=== PATIENT | male | born 1990 | race Caucasian/White ===

== ENCOUNTER 2023-05-28 11:47 | Outpatient (REF) | payer MEDICAID, SELFPAY ==
[2023-05-28 14:38] LABS: Anion Gap 12 (12-20); Blood Urea Nitrogen 13 mg/dL (9-16); Calcium 9.3 mg/dL (8.4-10.2); Carbon Dioxide 25 mmol/L (22-29); Chloride 104 mmol/L (96-108); Estimated Glomerular Filt Rate > 60; Glucose Random 82 mg/dL (60-115); Potassium 3.6 mmol/L (3.3-5.1); Sodium 137 mmol/L (135-145)
[2023-05-28 14:58] LABS: TSH reflex Free T4 0.59 uIU/mL (0.32-4.0)
== END 2023-05-28 11:48 | disposition home or self-care (01) ==
LOC: HO.CHCLDS 11:47
PROVIDERS: Visit Provider Internal Medicine
DX: I10 Essential (primary) hypertension (principal); E03.9 Hypothyroidism, unspecified
CPT/HCPCS: 36415; 80048; 84443

== ENCOUNTER 2024-01-08 10:50 | Outpatient (REF) | payer MEDICAID, SELFPAY ==
[2024-01-08 14:01] LABS: MANUAL DIFF FLAG NO
[2024-01-08 14:06] LABS: Basophils Absolute Auto 0.1 X10*3/uL (0.0-0.2); Basophils Percent Auto 0.9 % (0-2); Eosinophils Absolute Auto 0.2 X10*3/uL (0.0-0.4); Eosinophils Percent Auto 2.8 % (0-4); Hematocrit 44.2 % (42.0-52.0); Hemoglobin 15.9 g/dl (14.0-18.0); Imm Gran Abs Auto 0.03 X10*3/uL (0.00-0.03); Imm Gran Pct Auto 0.5 % (0.0-0.4); Lymphocytes Absolute Auto 1.8 X10*3/uL (1.2-4.9); Lymphocytes Percent Auto 28.1 % (20-40); Mean Corpuscular Hemoglobin 30.8 pg (27.0-33.0); Mean Corpuscular Volume 85.5 fL (80.0-98.0); Mean Platelet Volume 9.9 fL (9.4-12.4); Monocytes Absolute Auto 0.4 X10*3/uL (0.1-1.2); Monocytes Percent Auto 6.8 % (2-11); Neutrophils Absolute Auto 3.9 x10*3/uL (2.0-8.3); Neutrophils Percent Auto 60.9 % (45-73); Platelet Count 218 X10*3/uL (160-400); Red Blood Count 5.17 X10*6/uL (4.60-5.80); Red Cell Distribution Width 12.2 % (11.0-16.0); White Blood Count 6.4 X10*3/uL (4.8-10.8)
[2024-01-08 14:33] LABS: Alanine Aminotransferase 45 U/L (0-40); Albumin Level 4.7 g/dL (3.5-5.0); Alkaline Phosphatase 88 U/L (39-117); Anion Gap 14 (12-20); Aspartate Amino Transferase 23 U/L (5-37); Bilirubin Total 0.3 mg/dL (0.0-1.0); Blood Urea Nitrogen 14 mg/dL (9-16); Calcium 9.6 mg/dL (8.4-10.2); Carbon Dioxide 19 mmol/L (22-29); Chloride 109 mmol/L (96-108); Cholesterol 230 mg/dL (<200); Estimated Glomerular Filt Rate > 60; Glucose Random 104 mg/dL (60-115); HDL Cholesterol 58 mg/dL (>40); LDL Cholesterol Calculated 144 mg/dL (<100); Potassium 4.2 mmol/L (3.3-5.1); Sodium 138 mmol/L (135-145); Total Protein 7.3 g/dL (6.5-8.0); Triglycerides 142 mg/dL (<150)
[2024-01-08 14:52] LABS: TSH reflex Free T4 0.43 uIU/mL (0.32-4.0)
== END 2024-01-08 10:51 | disposition home or self-care (01) ==
LOC: HO.CHCLDS 10:50
PROVIDERS: Visit Provider Internal Medicine
DX: I10 Essential (primary) hypertension (principal); E66.01 Morbid (severe) obesity due to excess calories; Z68.41 Body mass index [BMI] 40.0-44.9, adult
CPT/HCPCS: 36415; 80053; 80061; 84443; 85025

== ENCOUNTER 2024-01-25 10:06 | Outpatient (REF) | payer MEDICAID, SELFPAY ==
--- NOTE | ~2024-01-25 | US_ITS ---
EXAMINATION: US ABDOMEN COMPLETE CLINICAL INFORMATION: Transaminitis. COMPARISON: Ultrasound abdomen July 30, 2013. CT abdomen and pelvis December 08, 2010. TECHNIQUE: Real-time imaging of the abdominal viscera. FINDINGS: PANCREAS: Normal. ABDOMINAL AORTA: The proximal, mid, and distal segments are normal in caliber. INFERIOR VENA CAVA: Visualized portions are normal. LIVER: The liver is normal in size. The liver contour is normal. Diffusely increased liver echogenicity. No focal hepatic lesion. There is no intrahepatic biliary duct dilatation seen. GALLBLADDER: Surgically absent. COMMON BILE DUCT: Normal in caliber measuring 0.3 cm in diameter. RIGHT KIDNEY: Normal. No hydronephrosis. No renal calculi or focal parenchymal lesions. The kidney measures 10.8 cm in maximum dimension. LEFT KIDNEY: Normal. No hydronephrosis. No renal calculi or focal parenchymal lesions. The kidney measures 10.7 cm in maximum dimension. SPLEEN: The spleen measures 13.2 cm in maximum dimension. FREE FLUID: None. US/US abdomen complete IMPRESSION: 1. Diffusely increased liver echogenicity. This is a nonspecific finding but most suggestive of hepatic steatosis. Correlation with liver enzymes recommended. 2. Mild splenomegaly. Electronically signed by: Kobi Tim MD 02/16/2024 09:40 AM EDT
== END 2024-01-25 10:07 | disposition home or self-care (01) ==
LOC: HO.US 10:06
PROVIDERS: PCP Internal Medicine; Visit Provider Internal Medicine
DX: R74.01 Elevation of levels of liver transaminase levels (principal); E66.01 Morbid (severe) obesity due to excess calories; Z68.41 Body mass index [BMI] 40.0-44.9, adult
CPT/HCPCS: 76700

== ENCOUNTER 2024-06-02 16:04 | Outpatient (REF) | payer MEDICAID, SELFPAY ==
[2024-06-02 17:24] LABS: MANUAL DIFF FLAG NO
[2024-06-02 17:27] LABS: Basophils Percent Auto 0.4 % (0-2); Eosinophils Absolute Auto 0.2 X10*3/uL (0.0-0.4); Eosinophils Percent Auto 2.2 % (0-4); Hematocrit 43.7 % (42.0-52.0); Imm Gran Abs Auto 0.05 X10*3/uL (0.00-0.03); Imm Gran Pct Auto 0.5 % (0.0-0.4); Lymphocytes Absolute Auto 2.5 X10*3/uL (1.2-4.9); Lymphocytes Percent Auto 23.5 % (20-40); Mean Corpuscular HGB Conc 36.6 g/dl (31.0-36.0); Mean Corpuscular Hemoglobin 30.4 pg (27.0-33.0); Mean Corpuscular Volume 83.1 fL (80.0-98.0); Mean Platelet Volume 9.6 fL (9.4-12.4); Monocytes Absolute Auto 0.7 X10*3/uL (0.1-1.2); Monocytes Percent Auto 6.7 % (2-11); Neutrophils Absolute Auto 7.1 x10*3/uL (2.0-8.3); Neutrophils Percent Auto 66.7 % (45-73); Platelet Count 289 X10*3/uL (160-400); Red Blood Count 5.26 X10*6/uL (4.60-5.80); Red Cell Distribution Width 12.3 % (11.0-16.0); White Blood Count 10.6 X10*3/uL (4.8-10.8)
== END 2024-06-02 16:05 | disposition home or self-care (01) ==
LOC: HO.CHCLDS 16:04
PROVIDERS: Visit Provider Internal Medicine
DX: K62.5 Hemorrhage of anus and rectum (principal); K62.6 Ulcer of anus and rectum
CPT/HCPCS: 36415; 85025; 87255

== ENCOUNTER 2024-09-19 13:05 | Outpatient (AMB) | payer MEDICAID, SELFPAY ==
--- NOTE | 2024-09-19 13:06 | MHC.OFFVIS ---
Vital Signs 09/19/24 13:16 Height 5 ft 2 in Weight 227 lb 15.327 oz BMI 41.7 BP 106/58 L Blood Pressure Location Rt brachial Position Sitting Pulse 78 Pulse Source Pulse Oximeter Pulse Oximetry (%) 96 Oxygen Delivery Method Room Air Intake Visit Reasons: colonoscopy issue Intake Note: NEW PATIENT for initial eval of rectal bleeding and constipation. Prior hx of colo/egd? N Chief Complaint; C/O infrequent episodes of constipation and rectal bleeding within the last few months. 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 Door To Door Selling Agent Required: No Accompanied by: Other Relationship Allergies pollen extracts [POLLEN] Allergy (Unknown, Unverified 03/04/20 18:02) SNEEZING HPI HPI colonoscopy issue: Details: 34 years old male with past medical history of constipation, seizure disorder, intellectual disability, hypertension, hypothyroidism, hyperlipidemia, obesity is here today for initial consultation. Patient was sent to us by his PCP. Patient was seen in May and evaluated in the office by his PCP. Patient has frequently been dealing with constipation. Reports also fecal urgencies and if he does not get the bathroom on time he soils himself. Patient in the staff who is with him during morning shift reports that patient had 1 episode of blood in the stool that was recorded by staff, no other documentation.. PCP's office note reviewed from last visit. Upon reviewing the note: exam: erythema of the anus associated that with irregular shallow ulcer near rectal opening, ccording to PCP's notes. CBC , normal H&H Patient reports 1 episode only when straining and no or more episodes since. [facility] Medical History (Updated 09/19/24 @ 13:23 by SE Kuhn) Depression Insomnia Hypothyroidism Hyperammonemia Hallucinations HTN (hypertension) Seizures Social History (Updated 09/19/24 @ 13:23 by SE Kuhn) Alcohol intake: unknown Patient Tobacco Use Status: Tobacco use Unknown Review of Systems Const Denies weight gain and Denies weight loss ENT Reports no additional complaints, Denies dysphagia and Denies odynophagia Card Reports no additional complaints Resp Reports no additional complaints GI Denies abdominal pain, Denies belching, Denies melena, Denies bloating, Denies change in bowel habits, Reports constipation, Denies dysphagia, Denies excessive flatus, Denies dyspepsia, Denies heartburn, Denies diarrhea, Denies loose stools, Denies nausea, Denies odynophagia and Denies vomiting Reports no additional complaints Musc Reports no additional complaints Neuro Reports no additional complaints Psych Reports no additional complaints Endo Reports no additional complaints Physical Exam Vital Signs: Last Vital Signs Pulse 78 09/19/24 13:16 BP 106/58 L 09/19/24 13:16 Pulse Ox 96 09/19/24 13:16 Oxygen Delivery Method Room Air 09/19/24 13:16 BMI result Body Mass Index 41.7 Const General: healthy appearing, no acute distress and well developed Nutritional Appearance: well nourished Orientation/consciousness: oriented to person and oriented to place Resp Effort & Inspection: normal respiratory effort, able to speak in complete sentences, no tracheal deviation and symmetric chest movement Auscultation: clear to auscultation bilaterally Cardio Rate: regular rate GI Inspection: Yes normal to inspection and No distended Palpation (GI): Soft to palpation, not firm, nontender and No hepatosplenomegaly present Auscultation: normal bowel sounds General: Yes no CVA tenderness Back/Spine/Pelvis Back: no CVA tenderness Skin General skin exam: elasticity normal, turgor normal and dry skin Neuro General: oriented to person and oriented to place Psych Appearance: grossly normal Assessment & Plan Assessment & Plan (1) Constipation: Code(s): K59.00 - Constipation, unspecified Qualifiers: Constipation type: slow transit constipation Qualified Code(s): K59.01 - Slow transit constipation Plan Script for Colace sent. Increase fluid intake and activity to promote better bowel motility. Patient in staff encouraged to have patient sits on the toilet longer time and avoid straining. Script for Proctosol send. Patient will return in 6 months if he continued to have symptoms of blood in his stools, melena or hematochezia the staff is to call our office to make sooner appointment. Both patient and staff verbalize understanding of instructions and agreeable to plan of care. There was given the opportunity to ask questions and all questions answered. Thank you for allowing me to participate in his care Medications: New docusate sodium 100 mg PO BEDTIME 90 caps 3RF K59.00 - Constipation, unspecified hydrocortisone 2.5% (Proctosol HC) 1 appl [place] BID-QID PRN 30 grams 2RF hemorrhoids K64.9 - Unspecified hemorrhoids Coding Level of Care Code New Pt Level 3 (23456) Diagnoses Slow transit constipation K59.01 Constipation type: slow transit constipation Time Spent (min) 40 Comment 30 minutes spent with patient and additional 10 minutes spent reviewing his records
[2024-09-19 13:16] VITALS: BP 106/58; PULSE 78; O2SAT 96; BMI 41.7
--- OUTSIDE RECORDS SUMMARY | 2024-09-19 14:57 | XMS_ITS | Encounter Summary ---
Author Organization [employer] Address [address] [place] [address] Care Team Providers Care Car Repair Supervisor Name Role Phone Amy White MD Primary Care Provider [phone] Encounter Details Date Type Department Care Team ([facility] st Contact Info) Description 12/10/2023 Orders Only [facility] MED & PEDS [address] [place], [place] [phone] Amy White MD [address] [place] [address] Social History Tobacco Use Types Packs/Day Years Used Date Smoking Tobacco: Never Passive Smoke Exposure: Never Smokeless Tobacco: Never Alcohol Use Standard Drinks/Week Comments Never 0 (1 standard drink = 0.6 oz pur e alcohol) Depression Answer Date Recorded Patient Health Questionnaire-9 Score 0 05/30/2022 Housing Stability Answer Date Recorded What is your housing situation today? I have mikey silveira 04/06/[address] you li ve. Do you have problems with any of the following? Not on file 04/06/2023 Food Insecurity Answer Date Recorded Within the past 12 months, y ou worried that your food would run out before you got money to buy more: Never True 04/06/2023 Within the past 12 months,th e food you bought just didn't last and you didn't have enough money to get more: Never True Transportation Answer Date Recorded In the past 12 months, has l ack of transportation kept you from medical appts, meetings, work or from getting things needed for daily living? No 04/06/2023 Utilities Answer Date Recorded In the past 12 months, has t he electric, gas, oil or water company threatened to shut off services in your home? No 04/06/2023 Depression Answer Date Recorded Patient Health Questionnaire-2 Score 0 05/30/2022 Sex and Gender Information Value Date Recorded Sex Assigned at Male 04/17/2022 10:21 AM EDT Legal Sex Male 10:21 AM EDT Gender Identity Male 04/17/2022 10:21 AM EDT Sexual Orientation Straight 04/17/2022 10 :21 AM EDT documented as of this encounter Plan of Treatment Not on file documented as of this encounter Visit Diagnoses Not on filedocumented in this encounter Additional Health Concerns Assessment Noted Time PHQ-9 Depression Total Score: 0 05/30/20 22 2:31 PM EST documented as of this encounter Care Teams Car Repair Supervisor Relationship Specialty Start Date End Date Amy White MD [address] [place] [id number] PCP - General Internal Medicine 06/18/18 documented as of this encounter
--- OUTSIDE RECORDS SUMMARY | 2024-09-19 14:57 | XMS_ITS | Encounter Summary ---
Author Organization [email or web address] Address [address] [place] [address] Care Team Providers Care Brake Repair Supervisor Name Role Phone Amy White MD Primary Care Provider [phone]- [phone] Encounter Details Date Type Department Care Team (Late st Contact Info) Description 01/01/[address] [facility] MED & PEDS [address] [place], [place] [phone] Amy White MD [address] [place], [place] [phone] Primary hypertension (Primary Dx); Class 3 severe obesity due to excess calories without serious comorbidity with body mass index (BMI) of 40.0 to 44.9 in adult (CMS/HCC) Social History Tobacco Use Types Packs/Day Years Used Date Smoking Tobacco: Never Passive Smoke Exposure: Never Smokeless Tobacco: Never Alcohol Use Standard Drinks/Week Comments Never 0 (1 standard drink = 0.6 oz pur e alcohol) Depression Answer Date Recorded Patient Health Questionnaire-9 Score 0 05/30/2022 Housing Stability Answer Date Recorded What is your housing situation today? I have mikey silveira 01/01/[address] you li ve. Do you have problems with any of the following? None of the above 01/01/2024 Food Insecurity Answer Date Recorded Within the past 12 months, y ou worried that your food would run out before you got money to buy more: Never True 01/01/2024 Within the past 12 months,th e food you bought just didn't last and you didn't have enough money to get more: Never True Transportation Answer Date Recorded In the past 12 months, has l ack of transportation kept you from medical appts, meetings, work or from getting things needed for daily living? No 01/01/2024 Utilities Answer Date Recorded In the past 12 months, has t he electric, gas, oil or water company threatened to shut off services in your home? No 01/01/2024 Depression Answer Date Recorded Patient Health Questionnaire-2 Score 0 05/30/2022 Sex and Gender Information Value Date Recorded Sex Assigned at Male 04/17/2022 10:21 AM EDT Legal Sex Male 10:21 AM EDT Gender Identity Male 04/17/2022 10:21 AM EDT Sexual Orientation Straight 04/17/2022 10 :21 AM EDT documented as of this encounter Plan of Treatment Not on file documented as of this encounter Procedures Procedure Name Priority Date/Time Associated Diagnosis Comments CBC WITH AUTO DIFFERENTIAL Routine 01/08/2024 10:56 AM EDT Primary hypertension Class 3 severe obesity due to excess calories without serious comorbidity with body mass index (BMI) of 40.0 to 44.9 in adult ([facility]) TSH W/REFLEX TO FT4 Routine 01/08/2024 1 0:06 AM EDT Primary hypertension Class 3 severe obesity due to excess calories without serious comorbidity with body mass index (BMI) of 40.0 to 44.9 in adult ([facility]) LIPID PANEL, STANDARD Routine 01/08/2024 10:06 AM EDT Primary hypertension Class 3 severe obesity due to excess calories without serious comorbidity with body mass index (BMI) of 40.0 to 44.9 in adult ([facility]) COMPREHENSIVE METABOLIC PANEL Routine 01/08/2024 10:06 AM EDT Primary hypertension Class 3 severe obesity due to excess calories without serious comorbidity with body mass index (BMI) of 40.0 to 44.9 in adult ([facility]) documented in this encounter Results * (ABNORMAL) CBC auto differential (01/08/2024 10:56 AM EDT) White Blood Count 6.4 4.8 - 10.8 X10*3/uL [facility] Red Blood Count 5.17 4.60 - 5.80 X10*6/uL [facility] Hemoglobin 15.9 14.0 - 18.0 g/dl [facility] Hematocrit 44.2 42.0 - 52.0 % [facility] Mean Corpuscular Volume 85.5 80.0 - 98.0 fL [facility] Mean Corpuscular Hemoglobin 30.8 27.0 - 33.0 pg [facility] Mean Corpuscular HGB Conc 36.0 31.0 - 36.0 g/dl [facility] Red Cell Distribution Width 12.2 11.0 - 16.0 % [facility] Platelet Count 218 160 - 400 X10*3/uL [facility] Mean Platelet Volume 9.9 9.4 - 12.4 fL [facility] Neutrophils Percent Auto 60.9 45 - 73 % [facility] Imm Gran Pct Auto 0.5(H) 0.0 - 0.4 % [facility] Lymphocytes Percent Auto 28.1 20 - 40 % [facility] Monocytes Percent Auto 6.8 2 - 11 % [facility] Eosinophils Percent Auto 2.8 0 - 4 % [facility] Basophils Percent Auto 0.9 0 - 2 % [facility] NRBC Pct Auto 0.0 0.0 - 0.2 /100WBC [facility] Neutrophils Absolute Auto 3.9 2.0 - 8.3 x10*3/uL [facility] Imm Gran Abs Auto 0.03 0.00 - 0.03 X10*3/uL [facility] Lymphocytes Absolute Auto 1.8 1.2 - 4.9 X10*3/uL [facility] Monocytes Absolute Auto 0.4 0.1 - 1.2 X10*3/uL [facility] Eosinophils Absolute Auto 0.2 0.0 - 0.4 X10*3/uL [facility] Basophils Absolute Auto 0.1 0.0 - 0.2 X10*3/uL [facility] NRBC Abs Auto 0.000 0.0 - 0.012 X10*3/uL [facility] Blood Venous blood specimen / Unknown 01/08/2024 10:56 AM EDT 01/08/2024 1:58 PM EDT us Amy White MD LAB BLOOD ORDERABLES Final Result Performing Organization Address [facility] Co de Phone Number [facility] [address] [place] [phone] * (ABNORMAL) Lipid Panel, Standard (01/08/2024 10:06 AM EDT) Triglycerides 142 <150 mg/dL [facility] Comment:Desirable Triglyceri de: less than 150 mg/dLBorderline High Triglyceride 150-199 mg/dLHigh Triglyceride: 200-499 mg/dLVery High Triglyceride: greater than or equal to 5OO mg/dL Cholesterol 230(H) <200 mg/dL [facility] Comment:Desirable Cholestero l: less than 200 mg/dLBorderline High Cholesterol: 200-239 mg/dLHigh Cholesterol: greater than 239 mg/dL LDL Cholesterol Calculated 144(H) <100 mg/dL [facility] Comment:Desirable LDL: less than 100 mg/dLNear Optimal/Above Optimal LDL: 110- 129 mg/dLBorderline High LDL: 130-159 mg/dLHigh LDL: 160-189 mg/dLVery High LDL: greater than or equal to 190 mg/dL HDL Cholesterol 58 >40 mg/dL [facility] Comment:Desirable HDL: great er than 40 mg/dL Note: This HDL assay may give artificially low results in patients with liver disease. Blood Venous blood specimen / Unknown 01/08/2024 10:06 AM EDT 01/08/2024 1:58 PM EDT us Amy White MD LAB BLOOD ORDERABLES Final Result Performing Organization Address [facility]/ZIP Co de Phone Number [facility] [address] [place] [phone] * TSH W/Reflex to FT4 (01/08/2024 10:06 AM EDT) TSH reflex Free T4 0.43 0.32 - 4.0 uIU/mL [facility] Blood Venous blood specimen / Unknown 01/08/2024 10:06 AM EDT 01/08/2024 1:58 PM EDT us Amy White MD LAB BLOOD ORDERABLES Final Result [facility] [address] [place] [phone] * (ABNORMAL) Comprehensive Metabolic Panel (01/08/2024 10:06 AM EDT) Sodium 138 135 - 145 mmol/L [facility] Potassium 4.2 3.3 - 5.1 mmol/L [facility] Chloride 109(H) 96 - 108 mmol/L [facility] Carbon Dioxide 19(L) 22 - 29 mmol/L [facility] Anion Gap 14 12 - 20 [facility] Urea Nitrogen (BUN) 14 9 - 16 mg/dL [facility] Creatinine, Serum 0.94 0.5 - 1.4 mg/dL [facility] Estimated Glomerular Filt Rate >60 [facility] Comment:NOTE: For -Am erican individuals, multiply the result by 1.210.Chronic Kidney Disease: Estimated GFR < 60 mL/min/[id number] Kidney Disease: Estimated GFR < 15 mL/min/1.73m2 Glucose 104 60 - 115 mg/dL [facility] Calcium 9.6 8.4 - 10.2 mg/dL [facility] Bilirubin, Total 0.3 0.0 - 1.0 mg/dL [facility] Aspartate Amino Transferase 23 5 - 37 U/L [facility] Alanine Aminotransferase 45(H) 0 - 40 U/L [facility] Total Protein 7.3 6.5 - 8.0 g/dL [facility] Albumin Level 4.7 3.5 - 5.0 g/dL [facility] Alkaline Phosphatase 88 39 - 117 U/L [facility] Blood Venous blood specimen / Unknown 01/08/2024 10:06 AM EDT 01/08/2024 1:58 PM EDT Amy Whiet MD LAB BLOOD ORDERABLES Final Result [facility] [address] [place] [phone] documented in this encounter Visit Diagnoses Diagnosis Primary hypertension- Primary Unspecified essential hypertension Class 3 severe obesity due to excess calories without serious comorbidity with body mass index (BMI) of 40.0 to 44.9 in adult (CMS/HCC) documented in this encounter Additional Health Concerns Assessment Noted Time PHQ-9 Depression Total Score: 0 05/30/20 22 2:31 PM EST documented as of this encounter Care Teams Brake Repair Supervisor Relationship Specialty Start Date End Date Amy White MD [address] [place] [phone] PCP - General Internal Medicine 06/18/18 documented as of this encounter
--- OUTSIDE RECORDS SUMMARY | 2024-09-19 14:57 | XMS_ITS | Encounter Summary ---
Author Organization [employer] Address [address] [place] [address] Care Team Providers Care Fur Stylist Name Role Phone Amy White MD Primary Care Provider [phone]- [phone] Encounter Details Date Type Department Care Team ([facility] st Contact Info) Description 07/26/2023 Orders Only [facility] MED & PEDS [address] [place], [place] [phone] Amy White MD [address] [place] [address] Moderate persistent asthma without complication Social History Tobacco Use Types Packs/Day Years [...] documented as of this encounter Visit Diagnoses Diagnosis Moderate persistent asthma without complication documented in this encounter Additional Health Concerns Assessment Noted Time PHQ-9 Depression Total Score: 0 05/30/20 22 2:31 PM EST documented as of this encounter Care Teams Fur Stylist Relationship Specialty Start Date End Date Amy White MD [address] [place] [address] PCP - General Internal Medicine 06/18/18 documented as of this encounter
--- OUTSIDE RECORDS SUMMARY | 2024-09-19 14:57 | XMS_ITS | Clinical Summary ---
Author Organization [facility] Address [address] [place] [id number] Care Team Providers Care Licensed Insurance Agent Name Role Phone Unavailable Primary Care Provider Unavailabl e Social History Tobacco Use Types Packs/Day Years Used Date Smoking Tobacco: Never Assessed Sex and Gender Information Value Date Recorded Sex Assigned at Not on file Legal Sex Male 3:01 PM EST Gender Identity Not on file Sexual Orientation Not on file Plan of Treatment Health Maintenance Due Date Last Done Comments Hepatitis B Vaccine (1 of 3 - 19+ 3-dose series) 2007 Pneumococcal Vaccine: Pediat rics (0 to 5 Years) and At-Risk Patients (6 to 64 Years) (2 of 2 - PCV) 01/13/2015 01/13/2014 Influenza Vaccine (Season Ended) 2025 03/20/20 19, 05/20/2012 [id number]
--- OUTSIDE RECORDS SUMMARY | 2024-09-19 14:57 | XMS_ITS | Clinical Summary ---
Author Organization [employer] Address [address] 7[address] [place] [address] Care Team Providers Care District Ranger Name Role Phone Amy White MD Primary Care Provider [phone] Allergies Active Allergy Reactions Criticality Noted Date Comments Gramineae Pollens 10/10/2022 Medications clonazePAM (KlonoPIN) [address] 1 tablet by translingual route as needed after generalized seizure. Take 1 tablet again after second seizure in 24 hours. May repeat x1 if third seizure in 24 hours. 04/17/20 18 Active clonazePAM (KlonoPIN) 1 MG tablet take 1 tablet by oral route at 8 PM if pt had a seizure during the day 01/19/20 21 Active ondansetron (Zofran) 4 MG tablet Take 1 tablet by mouth in the morning and 1 tablet at noon and 1 tablet in the evening. 08/19/19 22 Active OXcarbazepine (Trileptal) 600 MG tablet Take 2 tablet by mouth twice a day as directed Active risperiDONE (RisperDAL) 1 MG tablet Take 1 tablet by mouth once a day as needed per *after seizure* protocol and 1 tablet the following morning. 02/02/20 22 Active risperiDONE (RisperDAL) 0.5 MG tablet Take 0.5 mg by mouth in the morning and at bedtime. 05/05/20 19 Active venlafaxine XR (Effexor XR) 150 MG 24 hr capsule Take 1 capsule by mouth in the morning. 01/07/20 19 Active zonisamide (Zonegran) 100 MG capsule Take 3 capsules by mouth twice daily *pack 3 capsules in a bubble* 01/07/20 19 Active cloBAZam (Onfi) 20 MG tablet Take 1 tablet by mouth 2 times daily. Active bacitracin 500 UNIT/GM ointmentIndication s:Infected wound Apply topically 2 times daily. 14 g 01/13/20 23 Active hydrogen peroxide 3 % external solutionIndication s:Laceration of multiple sites of left upper extremity, subsequent encounter Apply topically if needed for wound care. To apply to the affected area 2 times a day. 118 mL 01/25/20 23 Active lactulose 20 gram/30 mL oral solutionIndication s:Moderate persistent asthma without complication Take 60 mL (40 g) by mouth in the morning. to achieve four to seven BM in once week. Contact HCP if individual continues to have more than 2 loose stools in one day. Contact PCP if not having a BM in 2 days. 3600 mL 3 07/26/19 24 Active hydrOXYzine HCl (Atarax) 25 MG tablet Take 1 tablet (25 mg) by mouth every 12 (twelve) hours if needed for itching. 60 tablet 3 12/07/19 24 Active sulfamethoxazole-t rimethoprim (Bactrim DS) 800-160 MG tablet Take 1 tab orally every 12 hrs for 1 days 20 tablet 12/07/19 24 Active Multiple Vitamin (Multi-Vitamin) tabletIndications: Painless rectal bleeding,Acquired hypothyroidism Take 1 tablet by mouth Once per day. 30 tablet 11 01/24/20 24 Active levothyroxine (Synthroid, Levoxyl) 50 MCG tabletIndications: Acquired hypothyroidism Take 1 tablet (50 mcg) by mouth in the morning. On an empty stomach 30 tablet 11 03/20/20 24 Active lisinopril-hydroCH LOROthiazide 10-12.5 MG tabletIndications: Hypertension, unspecified type Take 1 tablet by mouth Once per day. 30 tablet 11 03/24/20 24 025 Active acetaminophen (Tylenol 8 Hour) 650 MG ER tablet TAKE 1 TABLET BY MOUTH 3 TIMES A DAY IF NEEDED FOR TEMP >100, HEADACHES, TOOTHACHES, MUSCLE/JOINT/GEORGE K PAIN, MINOR INJURIES AND DISCOMFORT FROM SUTURES. CONTACT HCP IF SYMPTOMS HAVE NOT RESOLVED IN 3 DAYS 60 tablet 11 04/30/20 24 Active bacitracin 500 UNIT/GM ointmentIndication s:Infected wound APPLY A THIN FILM TOPICALLY 3 TIMES A DAY IF NEEDED FOR MINOR CUTS AND ABRASIONS. NO MORE THAN 3 DOSES IN 24 HOURS. CONTACT HCP IF NOT RESOLVED IN 7 DAYS 14 g 3 04/30/20 24 Active melatonin 5 MG tabletIndications: Primary insomnia TAKE 1 TABLET BY MOUTH AT BEDTIME 30 tablet 5 05/05/20 24 Active liver oil-zinc oxide (Desitin) 40 % ointment Apply pea size amount to anus at bedtime for one week. Then apply as needed for itching or discomfort. 113 g 3 06/04/20 24 Active Fluticasone-Salmet krista 100-50 MCG/ACT aerosol powderIndications: Moderate persistent asthma without complication Place 1 puff into mouth between cheek and gum 2 times daily. INHALE 1 PUFF BY MOUTH TWICE A DAY. RINSE MOUTH AFTER USE. 60 each 11 07/10/19 25 Active Active Problems Problem Noted Date Diagnosed Date Infected wound 01/12/2023 Assessment & Plan (01/12/2023 3:21 PM EDT): Maintain area dry and clean Apply bacitracin on affected area twice a day cephalexine Q 6hrs Do not miss appointment for possible suture removal on 01/15/23 Routine adult health maintenance 10/10/2022 Assessment & Plan (10/10/2022 4:27 PM EDT): Elder hasn't had an annual exam in over a year. I ordered blood work and [facility] 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 No medication alterations are necessary today. 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 This was edited in [employer] [facility]. Encounters Date Type Department Care Team Description 09/01/2024 5:40 PM EDT Office Visit [facility] [address] [place], [place] [phone] Herve Rutledge MD Sore throat (Primary Dx) 09/01/2024 Telephone [facility] [address] [place], [place] [phone] Amy White MD Nurse Triage 08/29/2024 Population [facility] Risk Score [facility] (C3) Department [address] [id number] Provider, Population Health Generic 07/10/2024 Refill [facility] [address] [place] [address] Amy White MD Moderate persistent asthma without complication 07/08/2024 Refill [facility] [address] [place] [address] Amy White MD 06/27/2024 Telephone [facility] [address] [place], [place] [phone] Pamela Nam MD from Last 3 Months Immunizations Name Administration Dates Next Due HepB-CpG 08/31/2023,08/03/2023 Influenza Injectable Quadriv alant Preservative Free IIV4 MDCK 08/03/2023 Influenza injectable quadrivalent preservative f ree 03/20/2019 Influenza, IIV3, injectable 03/05/2017, 4 Influenza, Injectable, MDCK, preservative free 1 07/09/2023 Influenza, Split (incl. purified surface antigen ) 05/20/2012 Pfizer Covid-19 Vaccine 12+ 08/16/2020, Pneumococcal Polysaccharide PPSV23 01/13/2014 Tdap 03/16/2017,02/22/2016 Social History Tobacco Use Types Packs/Day Years Used Date Smoking Tobacco: Never Passive Smoke Exposure: Never Smokeless Tobacco: Never Tobacco Cessation:Counseling Given: Not Answered Alcohol Use Standard Drinks/Week Comments Never 0 (1 standard drink = 0.6 oz pur e alcohol) Depression Answer Date Recorded Patient Health Questionnaire-9 Score 5 01/09/2024 Patient Health Questionnaire-9 Score 5 01/09/2024 Last PHQ-9: Questionnaire Data Not on file 0 01/09/2024 Housing Stability Answer Date Recorded What is [...] Answer Date Recorded Patient Health Questionnaire-2 Score 3 01/09/2024 Internet Access Answer Date Recorded Internet Access Q1 Yes 02/16/2024 Internet Access Q2 Not on file 02/16/2024 Sex and Gender Information Value Date Recorded Sex Assigned at Male 04/17/2022 10:21 AM EDT Legal Sex Male 10:21 AM EDT Gender Identity Male 04/17/2022 10:21 AM EDT Sexual Orientation Straight 04/17/2022 10 :21 AM EDT Last Filed Vital Signs Vital Sign Reading Time Taken Comments Blood Pressure 111/76 09/01/2024 5:54 PM EDT Pulse 88 09/01/2024 5:54 PM EDT Temperature 36.7 ??C (98.1 ??F) 09/01/2024 5:54 PM ED T Respiratory Rate 18 09/01/2024 5:54 PM EDT Oxygen Saturation 95% 09/01/2024 5:54 PM EDT Inhaled Oxygen Concentration - - Weight 104 kg (229 lb) 09/01/2024 5:54 PM EDT Height 157.5 cm (5' 2 ) 06/02/2024 3:07 PM EST Body Mass Index 41.88 06/02/2024 3:07 PM EST Plan of Treatment Health Maintenance Due Date Last Done Comments Alcohol/Substance Use Screening 2000 Family Planning (PISQ) 2003 Pneumococcal Vaccine: Pediatrics (0 to 5 Years) and At-Risk Patients (6 to 49) Years) (2 of 2 - PCV) 01/13/2015 01/13/2014 COVID-19 Vaccine (3 - season) 2024 08/16/2020, 07/26/2020 SDOH Screening 12/31/2024 01/01/2024 Depression Screening 01/08/2025 01/09/2024, 01/09/20 24 Tobacco Screening 06/02/2025 06/02/2024 DTaP/Tdap/Td Vaccines (3 - Td or Tdap) 03/16/2027 03/16/2017, 02/22/2016 Lipid Panel 01/07/2029 01/08/2024, 06/18, 06/15/2021 Zoster Vaccines (1 of 2) 2038 RSV Patients and Patients Aged 60 years or older (1 - 1-dose 75+ series) 2063 HIV Screening Completed 06/15/2021 Hepatitis C Screening Completed 06/28/2021, 021 Hepatitis B Vaccines Completed 08/31/2023, 08/03/19 24 Influenza Vaccine Completed 05/09/2024, , 03/20/2019, Additional history exists HIB Vaccines Aged Out No longer eligi ble based on patient's age to complete this topic HPV Vaccines Aged Out No longer eligi ble based on patient's age to complete this topic Hepatitis A Vaccines Aged Out No long er eligible based on patient's age to complete this topic IPV Vaccines Aged Out No longer eligi ble based on patient's age to complete this topic Meningococcal Vaccine Aged Out No anibal kong eligible based on patient's age to complete this topic RSV under 20 months Aged Out No longe r eligible based on patient's age to complete this topic Rotavirus Vaccines Aged Out No longer eligible based on patient's age to complete this topic Procedures Procedure Name Priority Date/Time Associated Diagnosis Comments POCT INFLUENZA A (ID NOW RAPID MOLECULAR) Routine 09/01/2024 6:05 PM EDT Sore throat POCT INFLUENZA B (ID NOW RAPID MOLECULAR) Routine 09/01/2024 6:04 PM EDT Sore throat POCT RAPID COVID ANTIGEN Routine 09/01/2024 6:00 PM EDT Sore throat POC YOUNG ID NOW STREP A Routine 09/01/2024 5:59 PM EDT Sore throat LIPID PANEL, STANDARD Routine 01/08/2024 10:06 AM EDT Primary hypertension Class 3 severe obesity due to excess calories without serious comorbidity with body mass index (BMI) of 40.0 to 44.9 in adult (CMS/HCC) ZZZ HISTORICAL HEPATITIS C AB W/REFL TO HCV RNA, QN, PCR Routine 06/28/2021 11:48 AM EST HIV 1/2 ANTIGEN/ANTIBODY, FOURTH GENERATION W/RFL Routine 06/15/2021 12:08 PM EST from Last 3 Months or Most Recently Relevant to Health Maintenance Results * POCT Rapid Influenza A YOUNG ID NOW (09/01/2024 6:05 PM EDT) Influenza A Negative Negative, Indeterminate [facility] QC Media Lot # [id number] [facility] Lot# Expiration Date [facility] Swab 09/01/2024 6:05 PM EDT Herve Paiz MD POINT OF CARE TEST ENTER/EDIT ORDERABLES Final Result [facility] [address] [place] [phone] * POCT Rapid Influenza B YOUNG ID NOW (09/01/2024 6:04 PM EDT) [facility] Influenza B Negative Negative, Indeterminate [facility] QC Media Lot # [id number] [facility] Lot# Expiration Date [facility] Swab 09/01/2024 6:04 PM EDT Herve Paiz MD POINT OF CARE TEST ENTER/EDIT ORDERABLES Final Result Performing Organization Address [facility]/ZIP Co de Phone Number [facility] [address] [place] [phone] * POCT Rapid Covid-19 BinaxNOW (09/01/2024 6:00 PM EDT) [facility] Rapid COVID Ag Negative QC Media Lot # [id number] Lot# Expiration Date Swab 09/01/2024 6:00 PM EDT Herve Paiz MD POINT OF CARE TEST ENTER/EDIT ORDERABLES Final Result * POCT Rapid Strep A YOUNG ID NOW (09/01/2024 5:59 PM EDT) [facility] Rapid Strep A Screen Negative Negative, None Detected QC Media Lot # [id number] Lot# Expiration Date Swab 09/01/2024 5:59 PM EDT Herve Paiz MD POINT OF CARE TEST ENTER/EDIT ORDERABLES Final Result * (ABNORMAL) Lipid Panel, Standard (01/08/2024 10:06 AM EDT) [facility] Triglycerides 142 <150 mg/dL [facility] Comment:Desirable Triglyceri de: less than 150 mg/dLBorderline High Triglyceride 150-199 mg/dLHigh Triglyceride: 200-499 mg/dLVery High Triglyceride: greater than or equal to 5OO mg/dL Cholesterol 230(H) <200 mg/dL [facility] Comment:Desirable Cholestero l: less than 200 mg/dLBorderline High Cholesterol: 200-239 mg/dLHigh Cholesterol: greater than 239 mg/dL LDL Cholesterol Calculated 144(H) <100 mg/dL [facility] Comment:Desirable LDL: less than 100 mg/dLNear Optimal/Above Optimal LDL: 110- 129 mg/dLBorderline High LDL: 130-159 mg/dLHigh LDL: 160-189 mg/dLVery High LDL: greater than or equal to 190 mg/dL HDL Cholesterol 58 >40 mg/dL [facility] Comment:Desirable HDL: great er than 40 mg/dL Note: This HDL assay may give artificially low results in patients with liver disease. Blood Venous blood specimen / Unknown 01/08/2024 10:06 AM EDT 01/08/2024 1:58 PM EDT us Amy White MD LAB BLOOD ORDERABLES Final Result [facility] [address] [place] [phone] * HEPATITIS C AB W/REFL TO HCV RNA, QN, PCR (06/28/2021 11:48 AM EST) HEPATITIS C ANTIBODY NON-REACT CLARK NON-REACT CLARK [facility] INDEX 0.01 <1.00 [facility] Comment: ?? HCV antibody was non-reactive. There is no laboratory ?? evidence of HCV infection. ?? In most cases, no further action is required. However, if recent HCV exposure is suspected, a test for HCV RNA (test code 22243) is suggested. ?? For additional information please refer to http://education.[employer]/faq/BXM24w5 (This link is being provided for informational/ educational purposes only.) ?? 06/28/2021 11:4 8 AM EST us Amy White MD HISTORICAL/NON ORDERABLE LA BS Final Result Performing Organization Address [facility] Phone Number [facility] [address] * HIV 1/2 ANTIGEN/ANTIBODY,FOURTH GENERATION W/RFL (06/15/2021 12:08 PM EST) HIV-1/2 ANTIGEN AND ANTIBODIES, 4TH GENERATION W/ REFLEX NON-REACT CLARK NON-REACT CLARK [facility] Comment: HIV-1 antigen and HIV-1/HIV-2 antibodies were not detected. There is no laboratory evidence of HIV infection. ?? PLEASE NOTE: This information has been disclosed to you from records whose confidentiality may be protected by state law. ??If your state requires such protection, then the state law prohibits you from making any further disclosure of the information without the specific written consent of the person to whom it pertains, or as otherwise permitted by law. A general authorization for the release of medical or other information is NOT sufficient for this purpose. ? For additional information please refer to http://education.[employer]/faq/PGJ101 (This link is being provided for informational/ educational purposes only.) ? The performance of this assay has not been clinically validated in patients less than 2 years old. ?? 06/15/2021 12:0 8 PM EST us Amy White MD LAB BLOOD ORDERABLES Final Result Performing Organization Address [facility] Phone Number [facility] [address] from Last 3 Months or Most Recently Relevant to Health Maintenance Insurance Care Teams District Ranger Relationship Specialty Start Date End Date Amy White MD [address] [place] [phone] PCP - General Internal Medicine 06/18/18
--- OUTSIDE RECORDS SUMMARY | 2024-09-19 14:57 | XMS_ITS | Encounter Summary ---
Author Organization [employer] Address [address] [facility] [address] [place] [address] Care Team Providers Care Business Development Engineer Name Role Phone Amy White MD Primary Care Provider [phone]- [phone] Encounter Details Date Type Department Care Team ([facility] st Contact Info) Description 01/02/[address] [facility]S [address] [place] [address] Amy White MD [address] [place] [address] Social History Tobacco Use Types Packs/Day Years Used Date Smoking Tobacco: Never Smokeless Tobacco: Never Alcohol Use Standard Drinks/Week Comments Never 0 (1 standard drink = 0.6 oz pur e alcohol) Depression Answer Date Recorded Patient Health Questionnaire-9 Score 0 05/30/2022 Depression Answer Date Recorded Patient Health Questionnaire-2 [...] documented as of this encounter Care Teams Business Development Engineer Relationship Specialty Start Date End Date Amy White MD [address] [place] [address] PCP - General Internal Medicine 06/18/18 documented as of this encounter
--- OUTSIDE RECORDS SUMMARY | 2024-09-19 14:57 | XMS_ITS | Encounter Summary ---
Author Organization [employer] [facility] Address [address] [facility] 7 [place] [address] Care Team Providers Care Senior Data Warehouse Architect Name Role Phone Amy White MD Primary Care Provider [phone] Encounter Details Date Type Department Care Team (Late st Contact Info) Description 05/24/2022 Abstract [facility] [address] [place] [address] Provider, MD Berk[place] Social History Tobacco Use Types Packs/Day Years [...] Diagnoses Not on filedocumented in this encounter Care Teams Senior Data Warehouse Architect Relationship Specialty Start Date End Date Amy White MD [address] [place] [address] PCP - General Internal Medicine 06/18/18 documented as of this encounter
--- OUTSIDE RECORDS SUMMARY | 2024-09-19 14:57 | XMS_ITS | Encounter Summary ---
Author Organization [employer] Address [address] [facility] 7t [place] [address] Care Team Providers Care Sales And Business Development Manager Name Role Phone Amy White MD Primary Care Provider [phone]- [phone] Reason for Visit * Reason Onset Date Comments Nurse Triage 12/03/2023 Encounter Details Date Type Department Care Team ([facility] st Contact Info) Description 12/03/2023 Telephone [facility] [address] [place] [address] Amy White MD [address] [place] [address] Nurse Triage Social History Tobacco Use Types Packs/Day Years [...] t he electric, gas, oil or water [employer] threatened to shut off services in your home? 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 Call to Pt , Pt answered, assistant coach with Pt and speaker phone initiated. Pt reports severe itchiness which is causing open and scabbed areas mainly bilateral lower extremities. Neg for rash, bumps, skin dryness. Pt reports main areas to bee left foot, top of which has scabbed area from scratching, Right foot also and side of left lower leg. Pt is advised to keep fingernails short and Pt declined this advise. Advised to use cold, clean wash cloth for relief. Pt does have order for bacitracin ointment and assistant coach reports scabbed areas had been cleaned with soap and water , rinsed , dried and ointment applied. Pt is advised to come to [facility] , hours given open today 830am-800pm and tomorrow. Facility closed on Sunday. Open 830am-400pm. Pt and assistant coach agree with disposition and home care advised. Pt insurance isverified as active. Protocol Used: Itching - Localized (Adult) Protocol-Based Disposition: See in Office or Video Visit within 3 Days Video visit not offered Positive Triage Question: * Cause unknown and present > 7 days * All higher-acuity triage questions were negative Care Advice Discussed: * Reassurance and Education - Itching * Don't Scratch * Wash off Irritants * Ice for Itching That Gets Worse * Hydrocortisone Cream for Itching * Antihistamine for Itching * Antihistamine Medicines - Extra Notes and Warnings * Reasons To Call Back - Looks infected (e.g., spreading redness, red streak, pus) - Itching becomes severe - Itching lasts over 7 days - You become worse * Telephone Encounter - Adry Chavez - 12/03/2023 11:44 AM EDT Tc from [facility] returning call. Please contact [phone] * Telephone Encounter - Tricia Garrido - 12/03/2023 11:01 AM EDT Symptom: Itching - No Rash Outcome: Schedule an urgent appointment (within 4 hours) or talk to a nurse or provider soon Reason: Itching has caused bleeding The caller accepted this outcome Please contact [facility]/pt at [phone] documented in this encounter Plan of Treatment Not on file documented as of this encounter Visit Diagnoses Not on filedocumented in this encounter Additional Health Concerns Assessment Noted Time PHQ-9 Depression Total Score: 0 05/30/20 22 2:31 PM EST documented as of this encounter Care Teams Sales And Business Development Manager Relationship Specialty Start Date End Date Amy White MD [address] [place] [phone] PCP - General Internal Medicine 06/18/18 documented as of this encounter
--- OUTSIDE RECORDS SUMMARY | 2024-09-19 14:57 | XMS_ITS | Encounter Summary ---
Author Organization [employer] Address [address] [facility] [address] [address] [place] [address] Care Team Providers Care Echocardiography Technologist Name Role Phone Amy White MD Primary Care Provider [phone]- [phone] Reason for Visit * Reason Onset Date Comments FYI 06/05/2024 Encounter Details Date Type Department Care Team ([facility] st Contact Info) Description 06/05/2024 Telephone [facility] [address] [place] [address] Amy White MD [address] [place] [address] FYI Social History Tobacco Use Types Packs/Day Years [...] encounter Miscellaneous Notes * Telephone Encounter - Sergio Guerrero RN - 06/05/2024 10:58 AM EST Please see FYI below. * Telephone Encounter - Jeanie Ledbetter - 06/05/2024 10:36 AM EST Tc from pharmacy notifying pt will be replaced with same medication liver oil- zinc oxide (Desitin) 40 % ointment just different method which it will be paste instead ointment as medication is not available as prescribed. documented in this encounter Plan of Treatment Not on file documented as of this encounter Visit Diagnoses Not on filedocumented in this encounter Additional Health Concerns Assessment Noted Time PHQ-9 Depression Total Score: 5 01/09/20 24 11:39 AM EDT documented as of this encounter Care Teams Echocardiography Technologist Relationship Specialty Start Date End Date Amy White MD [address] [place] [phone] PCP - General Internal Medicine 06/18/18 documented as of this encounter
--- OUTSIDE RECORDS SUMMARY | 2024-09-19 14:57 | XMS_ITS | Encounter Summary ---
Author Organization [employer] Address [address] [facility] 7t [place] [address] Care Team Providers Care Car Dumper Operator Name Role Phone Amy White MD Primary Care Provider Encounter Details Date Type Department Care Team ([facility] st Contact Info) Description 01/22/2023 Orders Only [facility] [address] [place], [place] [phone] Amy White MD [address] [place], [place] [phone] Infected wound (Primary Dx); Laceration of left upper arm, initial encounter; Irritation of left eye; Painless rectal bleeding; Acquired hypothyroidism Social History Tobacco Use Types Packs/Day Years [...] as of this encounter Visit Diagnoses Diagnosis Infected wound- Primary Posttraumatic wound infection not elsewhere classified Laceration of left upper arm, initial encounter Irritation of left eye Painless rectal bleeding Acquired hypothyroidism Unspecified hypothyroidism documented in this encounter Additional Health Concerns Assessment Noted Time PHQ-9 Depression Total Score: 0 05/30/20 22 2:31 PM EST documented as of this encounter Care Teams Car Dumper Operator Relationship Specialty Start Date End Date Amy White MD [address] [place] [id number] PCP - General Internal Medicine 06/18/18 documented as of this encounter
--- OUTSIDE RECORDS SUMMARY | 2024-09-19 14:57 | XMS_ITS | Encounter Summary ---
Author Organization [employer] Address [address] [facility] 7 [place] [address] Care Team Providers Care Acute Dialysis Nurse Name Role Phone Amy White MD Primary Care Provider Encounter Details Date Type Department Care Team (Late st Contact Info) Description 03/06/2023 Orders Only [facility]EDS [address] [place], [place] [phone] Amy White MD [address] [place] [address] Social History Tobacco Use Types Packs/Day Years [...] documented as of this encounter Care Teams Acute Dialysis Nurse Relationship Specialty Start Date End Date Amy White MD [address] [place] [address] PCP - General Internal Medicine 06/18/18 documented as of this encounter
== END 2024-09-19 13:29 | disposition home or self-care (01) ==
LOC: HO.HGI 13:05
PROVIDERS: PCP Internal Medicine; Visit Provider Nurse Practitioner Family
DX: K59.01 Slow transit constipation (principal)
CPT/HCPCS: 99203

== ENCOUNTER → 2024-09-19 13:05 | Outpatient (BNVA) | payer MEDICAID, SELFPAY | PROVIDERS: PCP Internal Medicine; Visit Provider Nurse Practitioner Family | DX: K59.01 Slow transit constipation (principal); K64.9 Unspecified hemorrhoids | CPT/HCPCS: 99212 ==

== ENCOUNTER 2024-12-09 12:01 | Outpatient (REF) | payer MEDICAID, SELFPAY ==
[2024-12-09 12:30] LABS: MANUAL DIFF FLAG NO
[2024-12-09 13:35] LABS: Basophils Percent Auto 0.5 % (0-2); Eosinophils Absolute Auto 0.1 X10*3/uL (0.0-0.4); Eosinophils Percent Auto 1.7 % (0-4); Hematocrit 40.5 % (42.0-52.0); Hemoglobin 14.7 g/dl (14.0-18.0); Imm Gran Abs Auto 0.04 X10*3/uL (0.00-0.03); Imm Gran Pct Auto 0.6 % (0.0-0.4); Lymphocytes Absolute Auto 2.1 X10*3/uL (1.2-4.9); Mean Corpuscular HGB Conc 36.3 g/dl (31.0-36.0); Mean Corpuscular Hemoglobin 30.5 pg (27.0-33.0); Mean Platelet Volume 9.9 fL (9.4-12.4); Monocytes Absolute Auto 0.3 X10*3/uL (0.1-1.2); Monocytes Percent Auto 5.1 % (2-11); Neutrophils Percent Auto 60.1 % (45-73); Platelet Count 249 X10*3/uL (160-400); Red Blood Count 4.82 X10*6/uL (4.60-5.80); Red Cell Distribution Width 12.2 % (11.0-16.0); White Blood Count 6.6 X10*3/uL (4.8-10.8)
--- OUTSIDE RECORDS SUMMARY | 2024-12-09 13:38 | XMS_ITS | Encounter Summary ---
Author Organization [facility] Address [address] [place] [address] [address] [place] [address] Care Team Providers Care Business Machines Teacher Name Role Phone Amy White MD Primary Care Provider Encounter Details Date Type Department Care Team (Late st Contact Info) Description 01/02/2023 Abstract [facility] MED & PEDS [address] [place] [address] Amy White MD [address] [place] [address] Social History Tobacco Use Types Packs/Day Years [...] as of this encounter Plan of Treatment Upcoming Encounters Date Type Department Care Team (Late st Contact Info) Description 01/12/2025 2:45 PM EDT Office Visit [facility] MED & PEDS [address] [place] [address] Amy White MD [address] [place] [address] documented as of this encounter Visit Diagnoses Not on filedocumented in this encounter Additional Health Concerns Assessment Noted Time PHQ-9 Depression Total Score: 0 05/30/20 22 2:31 PM EST documented as of this encounter Care Teams Business Machines Teacher Relationship Specialty Start Date End Date Amy White MD [address] [place] [id number] PCP - General Internal Medicine 06/18/18 documented as of this encounter
[2024-12-09 14:16] LABS: Alanine Aminotransferase 32 U/L (0-40); Albumin Level 4.7 g/dL (3.5-5.0); Alkaline Phosphatase 100 U/L (39-117); Anion Gap 13 (12-20); Aspartate Amino Transferase 32 U/L (5-37); Bilirubin Total 0.4 mg/dL (0.0-1.0); Blood Urea Nitrogen 10 mg/dL (9-16); Calcium 9.3 mg/dL (8.4-10.2); Carbon Dioxide 23 mmol/L (22-29); Chloride 109 mmol/L (96-108); Cholesterol 176 mg/dL (<200); Estimated Glomerular Filt Rate > 60; Glucose Random 100 mg/dL (60-115); HDL Cholesterol 45 mg/dL (>40); LDL Cholesterol Calculated 86 mg/dL (<100); Potassium 3.7 mmol/L (3.3-5.1); Sodium 141 mmol/L (135-145); Total Protein 6.9 g/dL (6.5-8.0); Triglycerides 226 mg/dL (<150)
[2024-12-09 14:31] LABS: TSH reflex Free T4 0.58 uIU/mL (0.32-4.0)
[2024-12-09 14:52] LABS: INTERNATIONAL NORM RATIO 1.1 (0.9-1.1); Prothrombin Time 12.5 SEC (10.9-12.4)
[2024-12-12 23:09] LABS: Anti-Thrombin III Activity 119 % normal (80-135)
[2024-12-13 04:58] LABS: Beta-2 Glycoprotein IgA <2.0 U/mL (<20.0); Beta-2 Glycoprotein IgG <2.0 U/mL (<20.0); Beta-2 Glycoprotein IgM <2.0 U/mL (<20.0); Protein C Activity 193 % normal (70-180); Protein S Activity rflx Tot&Fr 105 % normal (70-150)
[2024-12-15 15:24] LABS: Beta-2 Glycoprotein I Ab IgG <2.0 U/mL (<20.0); Beta-2 Glycoprotein I Ab IgM <2.0 U/mL (<20.0); Beta-2 Glycoprotein I Ab, IgA <2.0 U/mL (<20.0); Cardiolipin IgA <2.0 APL-U/mL (<20.0); Cardiolipin IgG Ab <2.0 GPL-U/mL (<20.0); Cardiolipin IgM Ab <2.0 MPL-U/mL (<20.0); Phosphatidylserine IgG <9 U (<=30); Phosphatidylserine PT IgM <9 U (<=30)
[2024-12-17 01:39] LABS: Factor V Leiden NEGATIVE
== END 2024-12-09 12:02 | disposition home or self-care (01) ==
LOC: HO.LAB 12:01
PROVIDERS: PCP Internal Medicine; Visit Provider Internal Medicine
DX: I10 Essential (primary) hypertension (principal); E03.9 Hypothyroidism, unspecified; G40.909 Epilepsy, unspecified, not intractable, without status epilepticus; I26.99 Other pulmonary embolism without acute cor pulmonale
CPT/HCPCS: 36415; 80053; 80061; 81241; 83516; 84443; 85025; 85300; 85302; 85303; 85306; 85610; 86146; 86147

== ENCOUNTER 2025-03-16 13:15 | Outpatient (AMB) | payer MEDICAID, SELFPAY ==
--- NOTE | 2025-03-16 13:36 | A.OFFVIS_ITS ---
Vital Signs 03/16/25 13:44 Height 5 ft 2 in Weight 228 lb BMI 41.7 BP 112/52 L Blood Pressure Location Rt brachial Position Sitting Pulse 82 Pulse Source Pulse Oximeter Pulse Oximetry (%) 95 Oxygen Delivery Method Room Air Intake Visit Reasons: 6 mo f/u Intake Note: Est pt for mgmt of constipation w/ hx of hematochezia. CC: Pt denies any GI changes or new sx since last visit. Senior Mortgage Underwriter Required: No Accompanied by: Stripping Shovel Operator Allergies pollen extracts (POLLEN) Allergy (Unknown, Unverified 03/16/25 13:36) SNEEZING HPI HPI 6 mo f/u: Details: LAST VISIT: Constipation Plan Script for Colace sent. Increase fluid intake and activity to promote better bowel motility. Patient in staff encouraged to have patient sits on the toilet longer time and avoid straining. Script for Proctosol send. Patient will return in 6 months if he continued to have symptoms of blood in his stools, melena or hematochezia the staff is to call our office to make sooner appointment. Both patient and staff verbalize understanding of instructions and agreeable to plan of care. There was given the opportunity to ask questions and all questions answered. ? Thank you for allowing me to participate in his care New docusate sodium 100 mg PO BEDTIME 90 caps 3RF K59.00 hydrocortisone 2.5% (Proctosol HC) 1 appl TN BID-QID PRN 30 grams 2RF hemorrhoids K64.9 TODAY'S VISIT Patient is here today for follow-up. Patient continues to have a blood in his stools, he reports that he really does not push or strains. Denies having any diarrhea. Currently taking lactulose and stool softener. Patient has 1 to 3 bowel movements daily. Patient reports he wipes his rectum vigorously after having a bowel movement. Patient staff reports that he is obsessed with wiping. He was is dry toilet paper and refuses to use wipes. Patient denies melena, unintentional weight loss or ribbon like stools. Patient has used Proctosol to help, however did not notice any change. Patient denies any other GI concerning symptoms. Patient reports good appetite. [facility] Medical History Depression Insomnia Hypothyroidism Hyperammonemia Hallucinations HTN (hypertension) Seizures Social History Alcohol intake: unknown Patient Tobacco Use Status: Tobacco use Unknown Review of Systems Const Denies weight gain and Denies weight loss ENT Reports no additional complaints, Denies dysphagia and Denies odynophagia Card Reports no additional complaints Resp Reports no additional complaints GI Denies abdominal pain, Denies belching, Denies melena, Denies bloating, Denies change in bowel habits, Reports constipation, Denies dysphagia, Denies excessive flatus, Denies dyspepsia, Denies heartburn, Denies diarrhea, Denies loose stools, Denies nausea, Denies odynophagia and Denies vomiting Reports no additional complaints Musc Reports no additional complaints Neuro Reports no additional complaints Psych Reports no additional complaints Endo Reports no additional complaints Physical Exam Vital Signs: Last Vital Signs Pulse 82 03/16/25 13:44 BP 112/52 L 03/16/25 13:44 Pulse Ox 95 03/16/25 13:44 Oxygen Delivery Method Room Air 03/16/25 13:44 BMI result Body Mass Index 41.7 Const General: healthy appearing, no acute distress and well developed Nutritional Appearance: well nourished Orientation/consciousness: oriented to person and oriented to place Resp Effort & Inspection: normal respiratory effort, able to speak in complete sentences, no tracheal deviation and symmetric chest movement Auscultation: clear to auscultation bilaterally Cardio Rate: regular rate GI Inspection: Yes normal to inspection and No distended Palpation (GI): Soft to palpation, not firm, nontender and No hepatosplenomegaly present Auscultation: normal bowel sounds General: Yes no CVA tenderness Back/Spine/Pelvis Back: no CVA tenderness Skin General skin exam: elasticity normal, turgor normal and dry skin Neuro General: oriented to person and oriented to place Psych Appearance: grossly normal Assessment & Plan Assessment & Plan (1) Constipation: Code(s): K59.00 - Constipation, unspecified Qualifiers: Constipation type: slow transit constipation Qualified Code(s): K59.01 - Slow transit constipation (2) Hemorrhoid: Code(s): K64.9 - Unspecified hemorrhoids Qualifiers: Hemorrhoid type: unspecified Qualified Code(s): K64.9 - Unspecified he morrhoids (3) Rectal itching: Code(s): L29.0 - Pruritus ani Plan Discussed with patient going for colonoscopy to assess. Patient is not happy about going. He is not happy about not eating anything all day. However both myself and staff convince patient to have the procedure. What to expect before during and after procedure discussed with patient. Stressed the importance of good bowel prep and clear liquid diet day before procedure. Patient denies any cardiac or respiratory symptoms. No issues with anesthesia in the past. I will see patient after the procedure, sooner on as needed basis. He is agreeable to this plan and verbalizes understanding of instructions. He was given the opportunity to ask questions and all questions answered. Thank you for allowing me to participate in his care Orders: Referrals GI Procedure Notification Z12.11 - Encounter for screening for malignant neoplasm of colon Medications: New bisacodyl (Dulcolax (bisacodyl)) take 4 tabs at noon the day before your colonoscopy 20 mg (4 x 5 mg) PO ONCE 4 tabs 0RF constipation 1 day Z12.11 - Encounter for screening for malignant neoplasm of colon polyethylene glycol 3350 (Miralax) As directed by gastroenterology department at [facility] 238 grams PO ONCE 238 grams 0RF Z12.11 - Encounter for screening for malignant neoplasm of colon Coding Level of Care Code Est Pt Level 3 (02012) Diagnoses Slow transit constipation K59.01 Constipation type: slow transit constipation Hemorrhoids, unspecified hemorrhoid type K64.9 Hemorrhoid type: unspecified Rectal itching L29.0 Time Spent (min) 30 Comment 20 minutes spent with patient and additional 10 minutes spent reviewing his records
[2025-03-16 13:44] VITALS: BP 112/52; PULSE 82; O2SAT 95; BMI 41.7
--- OUTSIDE RECORDS SUMMARY | 2025-03-16 14:41 | XMS_ITS | Clinical Summary ---
Author Organization [employer] Address [address] [facility] 7t [place] [address] Care Team Providers Care Hand Tire Trimmer Name Role Phone Amy White MD Primary Care Provider Allergies Active Allergy Reactions Criticality Noted Date Comments Gramineae Pollens 10/10/2022 Medications clonazePAM (KlonoPIN) [address] 1 tablet by translingual route as needed after generalized seizure. Take 1 tablet again after second seizure in 24 hours. May repeat x1 if third seizure in 24 hours. Active ondansetron (Zofran) 4 MG tablet Take 1 tablet by mouth in the morning and 1 tablet at noon and 1 tablet in the evening. 022 Active OXcarbazepine (Trileptal) 600 MG tablet Take 2 tablet by mouth twice a day as directed Active risperiDONE (RisperDAL) 1 MG tablet Take 1 tablet by mouth once a day as needed per *after seizure* protocol and 1 tablet the following morning. Active risperiDONE (RisperDAL) 0.5 MG tablet Take 0.5 mg by mouth in the morning and at bedtime. Active venlafaxine XR (Effexor XR) 150 MG 24 hr capsule Take 1 capsule by mouth in the morning. Active zonisamide (Zonegran) 100 MG capsule Take 3 capsules by mouth twice daily *pack 3 capsules in a bubble* Active cloBAZam (Onfi) 20 MG tablet Take 1 tablet by mouth 2 times daily. Active hydrogen peroxide 3 % external solutionIndicatio ns:Laceration of multiple sites of left upper extremity, subsequent encounter Apply topically if needed for wound care. To apply to the affected area 2 times a day. 118 mL 023 Active liver oil-zinc oxide (Desitin) 40 % ointment Apply pea size amount to anus at bedtime for one week. Then apply as needed for itching or discomfort. 113 g 3 024 Active Fluticasone-Salme terol 100-50 MCG/ACT aerosol powderIndications :Moderate persistent asthma without complication Place 1 puff into mouth between cheek and gum 2 times daily. INHALE 1 PUFF BY MOUTH TWICE A DAY. RINSE MOUTH AFTER USE. 60 each 11 025 Active lactulose 20 gram/30 mL oral solutionIndicatio ns:Moderate persistent asthma without complication Take 60 mL (40 g) by mouth Once per day. to achieve four to seven BM in once week. Contact HCP if individual continues to have more than 2 loose stools in one day. Contact PCP if not having a BM in 2 days. 3600 mL 3 025 Active melatonin 5 MG tabletIndications :Primary insomnia TAKE 1 TABLET BY MOUTH AT BEDTIME 30 tablet 5 025 Active bacitracin 500 UNIT/GM ointmentIndicatio ns:Infected wound Apply topically 2 times daily. 14 g 025 Active docusate sodium (Colace) 100 MG capsule Take 1 capsule by mouth at bedtime. 025 Active Multiple Vitamin (Multi-Vitamin) tabletIndications :Painless rectal bleeding,Acquired hypothyroidism TAKE 1 TABLET BY MOUTH EVERY DAY 30 tablet 11 025 Active apixaban (Eliquis) 5 MG tablet TAKE 1 TABLET BY MOUTH TWICE A DAY 60 tablet 025 Active hydrOXYzine HCl (Atarax) 25 MG tablet TAKE 1 TABLET BY MOUTH EVERY 12 HOURS NEEDED FOR ITCHING. CONTACT HCP IF NO IMPROVEMENT IN 3 DAYS. NOT TO EXCEED 2 DOSES IN 24 HOURS 60 tablet 3 025 Active lidocaine (Xylocaine) 5 % ointmentIndicatio ns:Muscle strain Apply topically if needed for mild pain. 50 g 025 2025 Active lisinopril-hydroC HLOROthiazide 10-12.5 MG tabletIndications :Hypertension, unspecified type TAKE 1 TABLET BY MOUTH EVERY DAY 30 tablet 11 025 Active apixaban (Eliquis) 5 MG tabletIndications :Other acute pulmonary embolism without acute cor pulmonale (HCC) TAKE 1 TABLET BY MOUTH TWICE A DAY 60 tablet 2 Active levothyroxine (Synthroid, Levoxyl) 50 MCG tabletIndications :Acquired hypothyroidism TAKE 1 TABLET BY MOUTH EVERY MORNING ON AN EMPTY STOMACH. 30 tablet 11 025 Active levothyroxine (Synthroid, Levoxyl) 50 MCG tabletIndications :Acquired hypothyroidism Take 1 tablet (50 mcg) by mouth in the morning. On an empty stomach 30 tablet 11 024 2024 Discontinued(R eorder (will not trigger notification to Pharmacy)) apixaban (Eliquis) 5 MG tabletIndications :Other acute pulmonary embolism without acute cor pulmonale (HCC) Take 1 tablet (5 mg) by mouth 2 times daily. 60 tablet 2 025 2024 Discontinued(R eorder (will not trigger notification to Pharmacy)) Active Problems Problem Noted Date Diagnosed Date Acute pulmonary embolism wit hout acute cor pulmonale (CMS/HCC) 12/09/2024 Infected wound 01/12/2023 Assessment & Plan (01/12/2023 [...] for an annual exam recall visit in [facility]-. 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 No medication alterations are necessary today. 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/HCC) 05/20/2012 Assessment & Plan (10/10/2022 4:28 PM EDT): Elder's home med list indicated a dose change of his Clobazam from 15 mg twice tay to 20 mg twice tay. This was edited in [employer] [facility]. Encounters Date Type Department Care Team Description 03/06/2025 Refill [facility] [address] [place] [address] Amy White MD Other acute pulmonary embolism without acute cor pulmonale ([facility]); Acquired hypothyroidism 02/06/2025 Refill [facility] [address] [place] [address] Amy White MD Hypertension, unspecified type 01/26/2025 Telephone [facility] [address] [place] [address] Amy Pool MD Medication Question 01/23/2025 Orders Only [facility] [address] [place] [address] Amy Pool MD Muscle strain (Primary Dx) 01/22/2025 Telephone [facility] [address] [place] [address] Amy Nichols MD Medication Question 01/16/2025 Refill [facility] [address] [place] [address] Amy White MD Muscle strain 01/12/2025 2:45 PM EDT Office Visit [facility] [address] [place] [address] Amy White MD Muscle strain (Primary Dx); Annual physical exam; Other constipation; Hypertension, unspecified type 01/12/2025 Travel 01/11/2025 Travel 01/05/2025 Patient Outreach [address] [address] Amy White MD Pre-visit Planning (SDOH screening negative and Tobacco screening negative) 12/25/2024 Refill [facility] [address] [place] [address] Amy White MD 12/18/2024 Telephone [facility] [address] [place] [phone] Amy White MD Call Back Request 12/18/2024 Refill [facility] [address] [place] [address] Amy White MD 12/17/2024 Results Follow-Up [facility] [address] [place] [address] Amy White MD Antithrombin III Activity, Prothrombin Time-INR, Cardiolipin Antibodies (IgA,IgG,IgM), Antiphospholipid Antibody Panel 12/15/2024 Results Follow-Up [facility] [address] [place] [address] Jess Trinidad, MOISÉS Protein C Activity with Reflex to Protein C Antigen, Protein S Activity with Reflex to Protein S Antigen, Total and Free, [id number] I Antibodies (IgG, IgA, IgM) 12/15/2024 Orders Only [facility] [address] [place] [address] Amy White MD Other acute pulmonary embolism without acute cor pulmonale (CMS/HCC) (Primary Dx) from Last 3 Months Immunizations Immunization Administration Dates Next Due HepB-CpG 08/31/2023,08/03/2023 Influenza [...] Date Recorded Patient Health Questionnaire-9 Score 0 01/12/2025 Patient Health Questionnaire-9 Score 0 01/12/2025 Last PHQ-9: Questionnaire Data Not on file 0 01/12/2025 Housing Stability Answer Date Recorded What is your housing situation today? I have mikey silveira 01/05/[address] you li ve. Do you have problems with any of the following? None of the above 01/05/2025 Food Insecurity Answer Date Recorded Within the past 12 months, y ou worried that your food would run out before you got money to buy more: Never True 01/05/2025 Within the past 12 months,th e food you bought just didn't last and you didn't have enough money to get more: Never True Transportation Answer Date Recorded In the past 12 months, has l ack of transportation kept you from medical appts, meetings, work or from getting things needed for daily living? No 01/05/2025 Utilities Answer Date Recorded In the past 12 months, has t he electric, gas, oil or water company threatened to shut off services in your home? No 01/05/2025 Depression Answer Date Recorded Patient Health Questionnaire-2 Score 0 01/12/2025 Internet Access Answer Date Recorded Internet Access Q1 Yes 01/05/2025 Internet Access Q2 Not on file 01/05/2025 Sex and Gender Information Value Date Recorded Sex Assigned at Male 04/17/2022 10:21 AM EDT Legal Sex Male 10:21 AM EDT Gender Identity Male 04/17/2022 10:21 AM EDT Sexual Orientation Straight 04/17/2022 10 :21 AM EDT Last Filed Vital Signs Vital Sign Reading Time Taken Comments Blood Pressure 119/78 01/12/2025 2:46 PM EDT Pulse 86 01/12/2025 2:46 PM EDT Temperature 36.6 C (97.8 F) 01/12/2025 2:46 PM EDT Respiratory Rate 20 01/12/2025 2:46 PM EDT Oxygen Saturation 96% 01/12/2025 2:46 PM EDT Inhaled Oxygen Concentration - - Weight 106 kg (233 lb) 01/12/2025 2:46 PM EDT Height 157.5 cm (5' 2 ) 01/12/2025 2:46 PM EDT Body Mass Index 42.62 01/12/2025 2:46 PM EDT Plan of Treatment Health Maintenance Due Date Last Done Comments Disability Screening 1988 Family Planning (PISQ) 2003 HPV Vaccines (1 - Male 3-dose series) 2003 Pneumococcal Vaccine: Pediatrics (0 to 5 Years) and At-Risk Patients (6 to 49) Years (2 of 2 - PCV) 01/13/2015 01/13/2014 COVID-19 Vaccine (3 - season) 2025 08/16/2020, 07/26/2020 Influenza Vaccine (#1) 2025 , 08/03/2023, 03/20/2019, Additional history exists Alcohol/Substance Use Screening 01/12/2026 01/12/2025 Depression Screening 01/12/2026 01/12/2025, 01/13/20 25 SDOH Screening 01/12/2026 01/12/2025 Tobacco Screening 01/12/2026 01/12/2025 DTaP/Tdap/Td Vaccines (3 - Td or Tdap) 03/16/2027 03/16/2017, 02/22/2016 Lipid Panel 12/09/2029 12/09/2024, 12/17, 06/28/2021, Additional history exists Zoster Vaccines (1 of 2) 2038 RSV Patients and Patients Aged 60 years or older (1 - 1-dose 75+ series) 2063 HIV Screening Completed 06/15/2021 Hepatitis C Screening Completed 06/28/2021, 021 Hepatitis B Vaccines Completed 08/31/2023, 08/03/19 24 HIB Vaccines Aged Out No longer eligi ble based on patient's age to complete this topic Hepatitis A Vaccines Aged Out No long er eligible based on patient's age to complete this topic IPV Vaccines Aged Out No longer eligi ble based on patient's age to complete this topic Meningococcal B Vaccine Aged Out No l onger eligible based on patient's age to complete [...] Procedure Name Priority Date/Time Associated Diagnosis Comments LIPID PANEL, STANDARD Routine 12/09/2024 12:29 PM EDT Primary hypertension Acquired hypothyroidism Seizure disorder (CMS/HCC) ZZZ HISTORICAL HEPATITIS C AB W/REFL TO HCV RNA, QN, PCR Routine 06/28/2021 11:48 AM EST HIV 1/2 ANTIGEN/ANTIBODY, FOURTH GENERATION W/RFL Routine 06/15/2021 12:08 PM EST from Last 3 Months or Most Recently Relevant to Health Maintenance Results * (ABNORMAL) Lipid Panel, Standard (12/09/2024 12:29 PM EDT) Triglycerides 226(H) <150 mg/dL [facility] Comment:Desirable Triglyceri de: less than 150 mg/dLBorderline High Triglyceride 150-199 mg/dLHigh Triglyceride: 200-499 mg/dLVery High Triglyceride: greater than or equal to 5OO mg/dL Cholesterol 176 <200 mg/dL [facility] Comment:Desirable Cholestero l: less than 200 mg/dLBorderline High Cholesterol: 200-239 mg/dLHigh Cholesterol: greater than 239 mg/dL LDL Cholesterol Calculated 86 <100 mg/dL [facility] Comment:Desirable LDL: less than 100 mg/dLNear Optimal/Above Optimal LDL: 110- 129 mg/dLBorderline High LDL: 130-159 mg/dLHigh LDL: 160-189 mg/dLVery High LDL: greater than or equal to 190 mg/dL HDL Cholesterol 45 >40 mg/dL [facility] Comment:Desirable HDL: great er than 40 mg/dL Note: This HDL assay may give artificially low results in patients with liver disease. Blood Venous blood specimen / Unknown 12/09/2024 12:29 PM EDT 12/09/2024 12:29 PM EDT Amy White MD LAB BLOOD ORDERABLES Final Result Performing Organization Address [facility]/ZIP Co de Phone Number [facility] [address] [place] [phone] * HEPATITIS C AB W/REFL TO HCV RNA, QN, PCR (06/28/2021 11:48 AM EST) HEPATITIS C ANTIBODY NON-REACT CLARK NON-REACT CLARK [facility] INDEX 0.01 <1.00 [facility] Comment: HCV antibody was non-reactive. There is no laboratory evidence of HCV infection. In most cases, no further action is required. However, if recent HCV exposure is suspected, a test for HCV RNA (test code 78276) is suggested. For additional information please refer to http://education.[employer]/faq/ELL63v1 (This link is being provided for informational/ educational purposes only.) 06/28/2021 11:4 8 AM EST us Amy White MD HISTORICAL/NON ORDERABLE LA BS Final Result [facility] [address] * HIV 1/2 ANTIGEN/ANTIBODY,FOURTH GENERATION W/RFL (06/15/2021 12:08 PM EST) HIV-1/2 ANTIGEN AND ANTIBODIES, 4TH GENERATION W/ REFLEX NON-REACT CLARK NON-REACT CLARK [facility] Comment: HIV-1 antigen and HIV-1/HIV-2 antibodies were not detected. There is no laboratory evidence of HIV infection. PLEASE NOTE: This information has been disclosed to you from records whose confidentiality may be protected by state law. If your state requires such protection, then the state law prohibits you from making any further disclosure of the information without the specific written consent of the person to whom it pertains, or as otherwise permitted by law. A general authorization for the release of medical or other information is NOT sufficient for this purpose. For additional information please refer to http://education.[employer]/faq/RJH438 (This link is being provided for informational/ educational purposes only.) The performance of this assay has not been clinically validated in patients less than 2 years old. 06/15/2021 12:0 8 PM EST us Amy White MD LAB BLOOD ORDERABLES Final Result Performing Organization Address City/State/[facility] Co de Phone Number [facility] [address] from Last 3 Months or Most Recently Relevant to Health Maintenance [place] [address] [place] [address] C3 Care Teams Hand Tire Trimmer Relationship Specialty Start Date End Date Amy White MD [address] [place] [phone] PCP - General Internal Medicine 06/18/18
--- OUTSIDE RECORDS SUMMARY | 2025-03-16 14:41 | XMS_ITS | Encounter Summary ---
Author Organization [employer] Address [address] [facility] 7t [place] [address] Care Team Providers Care Cushion Filler Name Role Phone Amy White MD Primary Care Provider Reason for Visit * Reason Onset Date Comments FYI 06/05/2024 Encounter Details Date Type Department Care Team ([facility] st Contact Info) Description 06/05/2024 Telephone [facility] [address] [place] [address] Amy White MD [address] [place] [address] FYI Social History Tobacco Use Types Packs/Day [...] documented as of this encounter Care Teams Cushion Filler Relationship Specialty Start Date End Date Amy White MD [address] [place] [phone] PCP - General Internal Medicine 06/18/18 documented as of this encounter
--- OUTSIDE RECORDS SUMMARY | 2025-03-16 14:41 | XMS_ITS | Encounter Summary ---
Author Organization [employer] Address [address] [facility] [address] [place] [address] Care Team Providers Care Turn Out Worker Name Role Phone Amy White MD Primary Care Provider [phone] Encounter Details Date Type Department Care Team (Late st Contact Info) Description 01/02/2023 Abstract [facility] [address] [place], [place] [phone] Amy White MD [address] [place] [address] Social History Tobacco Use Types Packs/Day Years [...] documented as of this encounter Care Teams Turn Out Worker Relationship Specialty Start Date End Date Amy White MD [address] [place] [address] PCP - General Internal Medicine 06/18/18 documented as of this encounter
--- OUTSIDE RECORDS SUMMARY | 2025-03-16 14:41 | XMS_ITS | Encounter Summary ---
Author Organization [employer] Address [address] [facility] [address] 7[address] [place] [address] Care Team Providers Care Radio Assembler Name Role Phone Amy White MD Primary Care Provider Encounter Details Date Type Department Care Team (Late st Contact Info) Description 12/15/2024 Orders Only [facility] [address] [place], [place] [phone] Amy White MD [address] [place], [place] [phone] Other acute pulmonary embolism without acute cor pulmonale (CMS/HCC) (Primary Dx) Social History Tobacco Use Types Packs/Day Years [...] as of this encounter Visit Diagnoses Diagnosis Other acute pulmonary embolism without acute cor pulmonale (HCC)- Primary documented in this encounter Additional Health Concerns Assessment Noted Time PHQ-9 Depression Total Score: 5 01/09/20 24 11:39 AM EDT documented as of this encounter Care Teams Radio Assembler Relationship Specialty Start Date End Date Amy White MD [address] [place] [phone] PCP - General Internal Medicine 06/18/18 documented as of this encounter
--- OUTSIDE RECORDS SUMMARY | 2025-03-16 14:42 | XMS_ITS | Encounter Summary ---
Author Organization [employer] Address [address] [facility] 7t [place] [address] Care Team Providers Care Sawyer Helper Name Role Phone Amy White MD Primary Care Provider [phone] Reason for Visit * Reason Onset Date Comments Appointment Request 10/09/2024 Encounter Details Date Type Department Care Team ([facility] st Contact Info) Description 10/09/2024 Telephone [facility] [address] [place] [address] Amy White MD [address] [place] [address] Appointment Request Social History Tobacco Use Types Packs/Day Years [...] encounter Miscellaneous Notes * Telephone Encounter - Bao Wilson - 10/09/2024 2:23 PM EDT Tc from [facility] requesting a appt with PCP after pt seeing the Gastroanterologist. Contact [facility] with appt at [phone] documented in this encounter Plan of Treatment Not on file documented as of this encounter Visit Diagnoses Not on filedocumented in this encounter Additional Health Concerns Assessment Noted Time PHQ-9 Depression Total Score: 5 01/09/20 24 11:39 AM EDT documented as of this encounter Care Teams Sawyer Helper Relationship Specialty Start Date End Date Amy White MD [address] [place] [phone] PCP - General Internal Medicine 06/18/18 documented as of this encounter
--- OUTSIDE RECORDS SUMMARY | 2025-03-16 14:42 | XMS_ITS | Encounter Summary ---
Author Organization [employer] Address [address] [facility] [address] 7[address] [place] [address] Care Team Providers Care Circulation Sales Representative Name Role Phone Amy White MD Primary Care Provider Encounter Details Date Type Department Care Team (Late st Contact Info) Description 07/26/2023 Orders Only [facility] [address] [place], [place] [phone] Amy White MD [address] [place], [place] [phone] Moderate persistent asthma without complication Social History [...] documented as of this encounter Care Teams Circulation Sales Representative Relationship Specialty Start Date End Date Amy White MD [address] [place] [phone] PCP - General Internal Medicine 06/18/18 documented as of this encounter
--- OUTSIDE RECORDS SUMMARY | 2025-03-16 14:42 | XMS_ITS | Encounter Summary ---
Author Organization [employer] Address [address] [facility] 7t [place] [address] Care Team Providers Care Coal Yard Supervisor Name Role Phone Amy White MD Primary Care Provider Encounter Details Date Type Department Care Team ([facility] st Contact Info) Description 01/23/2025 Orders Only [facility] [address] [place], [place] [phone] Amy White MD [address] [place], [place] [phone] Muscle strain (Primary Dx) Social History Tobacco Use Types [...] as of this encounter Visit Diagnoses Diagnosis Muscle strain- Primary Unspecified site of sprain and strain documented in this encounter Additional Health Concerns Assessment Noted Time PHQ-9 Depression Total Score: 0 01/13/20 25 2:49 PM EDT documented as of this encounter Care Teams Coal Yard Supervisor Relationship Specialty Start Date End Date Amy White MD [address] [place] [phone] PCP - General Internal Medicine 06/18/18 documented as of this encounter
--- OUTSIDE RECORDS SUMMARY | 2025-03-16 14:42 | XMS_ITS | Encounter Summary ---
Author Organization [employer] Address [address] [facility] 7t [place] [address] Care Team Providers Care Mixed Crop And Livestock Farmer Name Role Phone Amy White MD Primary Care Provider Reason for Visit * Reason Onset Date Comments Lab Orders 10/27/2024 Encounter Details Date Type Department Care Team ([facility] st Contact Info) Description 10/27/2024 Telephone [facility] [address] [place] [address] Amy White MD [address] [place] [address] Lab Orders Social History Tobacco Use Types Packs/Day Years [...] encounter Miscellaneous Notes * Telephone Encounter - Wing Nakita RN - 10/29/2024 2:01 PM EDT Tc to pt's guardian [facility], relayed that labs were ordered and to get them tone a week before the appointment. Also requesting for refill of bacitracin ointment as there are no refills reported. Last ordered on 04/30/24. * Telephone Encounter - Wing Nakita RN - 10/29/2024 9:40 AM EDT Please advise if labs are needed prior to visit with PCP in December. * Telephone Encounter - Familia Long - 10/27/2024 4:40 PM EDT TC from [facility] just scheduled PE for December with PCP . Wanting to know if pt should get labs done prior to visit . documented in this encounter Plan of Treatment Not on file documented as of this encounter Visit Diagnoses Not on filedocumented in this encounter Additional Health Concerns Assessment Noted Time PHQ-9 Depression Total Score: 5 01/09/20 11:39 AM EDT documented as of this encounter Care Teams Mixed Crop And Livestock Farmer Relationship Specialty Start Date End Date Amy White MD [address] [place] [phone] PCP - General Internal Medicine 06/18/18 documented as of this encounter
--- OUTSIDE RECORDS SUMMARY | 2025-03-16 14:42 | XMS_ITS | Encounter Summary ---
Author Organization [employer] [facility] Address 75 [facility] 7t [place] [address] Care Team Providers Care Clerk To Justice Name Role Phone Amy White MD Primary Care Provider Encounter Details Date Type Department Care Team (Late st Contact Info) Description 05/24/2022 Abstract [facility] [address] [place] [phone] Provider, MD Berkley Social History Tobacco Use [...] on filedocumented in this encounter Care Teams Clerk To Justice Relationship Specialty Start Date End Date Amy White MD [address] [place] [address] PCP - General Internal Medicine 06/18/18 documented as of this encounter
--- OUTSIDE RECORDS SUMMARY | 2025-03-16 14:42 | XMS_ITS | Encounter Summary ---
Author Organization [employer] Address [address] [facility] 7t [place] [address] Care Team Providers Care Dedicated Truck Driver Name Role Phone Amy White MD Primary Care Provider Reason for Visit * Reason Onset Date Comments Nurse Triage 12/03/2023 Encounter Details Date Type Department Care Team ([facility] st Contact Info) Description 12/03/2023 Telephone C [facility] [address] [place] [address] Amy White MD [address] [place] [address] Nurse Triage Social History Tobacco Use Types [...] t he electric, gas, oil or water [employer] threatened to shut off services in your [...] 11:56 AM EDT Triage call to Pt classification case manager , message left to call [facility] [phone]. Call to Pt , Pt answered, assistant infant teacher with Pt and speaker phone initiated. Pt [...] have order for bacitracin ointment and assistant infant teacher reports scabbed areas had been cleaned with soap and water , rinsed , dried and ointment applied. Pt is advised to come to [facility] , hours given open today 830am-800pm and tomorrow. Facility closed on Sunday. Open 830am-400pm. Pt and assistant infant teacher agree with disposition and home care advised. [...] Tc from [facility] returning call. Please contact [phone] * Telephone Encounter - Tricia Garrido - 12/03/2023 11:01 AM EDT Symptom: Itching - No Rash Outcome: Schedule an urgent appointment (within 4 hours) or talk to a nurse or provider soon Reason: Itching has caused bleeding The caller accepted this outcome Please contact [facility] at [phone] documented in this encounter Plan of Treatment Not on file documented as of this encounter Visit Diagnoses Not on filedocumented in this encounter Additional Health Concerns Assessment Noted Time PHQ-9 Depression Total Score: 0 05/30/20 22 2:31 PM EST documented as of this encounter Care Teams Dedicated Truck Driver Relationship Specialty Start Date End Date Amy White MD [address] [place] [phone] PCP - General Internal Medicine 06/18/18 documented as of this encounter
--- OUTSIDE RECORDS SUMMARY | 2025-03-16 14:42 | XMS_ITS | Encounter Summary ---
Author Organization [employer] Address [address] [facility] 7 [place] [address] Care Team Providers Care Patent Counsel Name Role Phone Amy White MD Primary Care Provider Encounter Details Date Type Department Care Team (Late st Contact Info) Description 03/06/2023 Orders Only [facility] [address] [place], [place] [phone] Amy Whtie MD [address] [place] [address] Social History Tobacco Use Types Packs/Day Years [...] documented as of this encounter Care Teams Patent Counsel Relationship Specialty Start Date End Date Amy White MD [address] [place] [address] PCP - General Internal Medicine 06/18/18 documented as of this encounter
--- OUTSIDE RECORDS SUMMARY | 2025-03-16 14:42 | XMS_ITS | Encounter Summary ---
Author Organization [employer] Address [address] [facility] 7t [place] [address] Care Team Providers Care Um Specialist Name Role Phone Amy White MD Primary Care Provider Encounter Details Date Type Department Care Team (Late st Contact Info) Description 01/01/2024 Orders Only [facility] [address] [place], [place] [phone] Amy White MD [address] [place], [place] [phone] Primary hypertension (Primary Dx); Class 3 severe [...] (BMI) of 40.0 to 44.9 in adult ([facility]) TSH W/REFLEX TO FT4 Routine 01/08/2024 1 0:06 AM EDT Primary hypertension Class 3 severe obesity due to excess calories without serious comorbidity with body mass index (BMI) of 40.0 to 44.9 in adult ([facility]) LIPID PANEL, STANDARD Routine 01/08/2024 10:06 AM EDT Primary hypertension Class 3 severe obesity due to excess calories without serious comorbidity with body mass index (BMI) of 40.0 to 44.9 in adult ([facility]) COMPREHENSIVE METABOLIC PANEL Routine 01/08/2024 10:06 AM EDT Primary hypertension Class 3 severe obesity due to excess calories without serious comorbidity with body mass index (BMI) of 40.0 to 44.9 in adult ([facility]) documented in this encounter Results * (ABNORMAL) CBC auto differential (01/08/2024 10:56 AM EDT) White Blood Count 6.4 4.8 - 10.8 X10*3/uL [facility] Red Blood Count 5.17 4.60 - 5.80 X10*6/uL [facility] Hemoglobin 15.9 14.0 - 18.0 g/dl [facility] Hematocrit 44.2 42.0 - 52.0 % [facility] Mean Corpuscular Volume 85.5 80.0 - 98.0 fL [facility] Mean Corpuscular Hemoglobin 30.8 27.0 - 33.0 pg [facility] Mean Corpuscular HGB Conc 36.0 31.0 - 36.0 g/dl [facility] Red Cell Distribution Width 12.2 11.0 - 16.0 % [facility] Platelet Count 218 160 - 400 X10*3/uL [facility] Mean Platelet Volume 9.9 9.4 - 12.4 fL [facility] Neutrophils Percent Auto 60.9 45 - 73 % [facility] Imm Gran Pct Auto 0.5(H) 0.0 - 0.4 % [facility] Lymphocytes Percent Auto 28.1 20 - 40 % [facility] Monocytes Percent Auto 6.8 2 - 11 % [facility] Eosinophils Percent Auto 2.8 0 - 4 % [facility] Basophils Percent Auto 0.9 0 - 2 % [facility] NRBC Pct Auto 0.0 0.0 - 0.2 /100WBC [facility] Neutrophils Absolute Auto 3.9 2.0 - 8.3 x10*3/uL [facility] Imm Gran Abs Auto 0.03 0.00 - 0.03 X10*3/uL [facility] Lymphocytes Absolute Auto 1.8 1.2 - 4.9 X10*3/uL [facility] Monocytes Absolute Auto 0.4 0.1 - 1.2 X10*3/uL [facility] Eosinophils Absolute Auto 0.2 0.0 - 0.4 X10*3/uL [facility] Basophils Absolute Auto 0.1 0.0 - 0.2 X10*3/uL [facility] NRBC Abs Auto 0.000 0.0 - 0.012 X10*3/uL [facility] Blood Venous blood specimen / Unknown 01/08/2024 10:56 AM EDT 01/08/2024 1:58 PM EDT us Amy White MD LAB BLOOD ORDERABLES Final Result Performing Organization Address [facility] Co de Phone Number [facility] [address] [place] [address] [phone] * (ABNORMAL) Lipid Panel, Standard (01/08/2024 10:06 AM EDT) Triglycerides 142 <150 mg/dL [facility] Comment:Desirable Triglyceri de: less than 150 mg/dLBorderline High Triglyceride 150-199 mg/dLHigh Triglyceride: 200-499 mg/dLVery High Triglyceride: greater than or equal to 5OO mg/dL Cholesterol 230(H) <200 mg/dL [facility] Comment:Desirable Cholestero l: less than 200 mg/dLBorderline High Cholesterol: 200-239 mg/dLHigh Cholesterol: greater than 239 mg/dL LDL Cholesterol Calculated 144(H) <100 mg/dL [facility] Comment:Desirable LDL: less than 100 mg/dLNear Optimal/Above Optimal LDL: 110- 129 mg/dLBorderline High LDL: 130-159 mg/dLHigh LDL: 160-189 mg/dLVery High LDL: greater than or equal to 190 mg/dL HDL Cholesterol 58 >40 mg/dL [facility] Comment:Desirable HDL: great er than 40 mg/dL Note: This HDL assay may give artificially low results in patients with liver disease. Blood Venous blood specimen / Unknown 01/08/2024 10:06 AM EDT 01/08/2024 1:58 PM EDT us Amy White MD LAB BLOOD ORDERABLES Final Result Performing Organization Address [facility]/ZIP Co de Phone Number [facility] [address] [place] [phone] * TSH W/Reflex to FT4 (01/08/2024 10:06 AM EDT) TSH reflex Free T4 0.43 0.32 - 4.0 uIU/mL [facility] Blood Venous blood specimen / Unknown 01/08/2024 10:06 AM EDT 01/08/2024 1:58 PM EDT us Amy White MD LAB BLOOD ORDERABLES Final Result [facility] [address] [place] [phone] * (ABNORMAL) Comprehensive Metabolic Panel (01/08/2024 10:06 AM EDT) Sodium 138 135 - 145 mmol/L [facility] Potassium 4.2 3.3 - 5.1 mmol/L [facility] Chloride 109(H) 96 - 108 mmol/L [facility] Carbon Dioxide 19(L) 22 - 29 mmol/L [facility] Anion Gap 14 12 - 20 [facility] Urea Nitrogen (BUN) 14 9 - 16 mg/dL [facility] Creatinine, Serum 0.94 0.5 - 1.4 mg/dL [facility] Estimated Glomerular Filt Rate >60 [facility] Comment:NOTE: For -Am erican individuals, multiply the result by 1.210.Chronic Kidney Disease: Estimated GFR < 60 mL/min/1.41p3Tprfre Kidney Disease: Estimated GFR < 15 mL/min/1.73m2 Glucose 104 60 - 115 mg/dL [facility] Calcium 9.6 8.4 - 10.2 mg/dL [facility] Bilirubin, Total 0.3 0.0 - 1.0 mg/dL [facility] Aspartate Amino Transferase 23 5 - 37 U/L [facility] Alanine Aminotransferase 45(H) 0 - 40 U/L [facility] Total Protein 7.3 6.5 - 8.0 g/dL [facility] Albumin Level 4.7 3.5 - 5.0 g/dL [facility] Alkaline Phosphatase 88 39 - 117 U/L [facility] Blood Venous blood specimen / Unknown 01/08/2024 10:06 AM EDT 01/08/2024 1:58 PM EDT Amy White MD LAB BLOOD ORDERABLES Final Result [facility] [address] [place] [phone] documented in this encounter Visit Diagnoses Diagnosis Primary hypertension- Primary Unspecified essential hypertension Class 3 severe obesity due to excess calories without serious comorbidity with body mass index (BMI) of 40.0 to 44.9 in adult (HCC) documented in this encounter Additional Health Concerns Assessment Noted Time PHQ-9 Depression Total Score: 0 05/30/20 22 2:31 PM EST documented as of this encounter Care Teams Um Specialist Relationship Specialty Start Date End Date Amy White MD [address] [place] [phone] PCP - General Internal Medicine 06/18/18 documented as of this encounter
--- OUTSIDE RECORDS SUMMARY | 2025-03-16 14:42 | XMS_ITS | Encounter Summary ---
Author Organization [employer] Address [address] [facility] 7t [place] [address] Care Team Providers Care Core Rescuer Name Role Phone Amy White MD Primary Care Provider Encounter Details Date Type Department Care Team (Late st Contact Info) Description 01/22/2023 Orders Only [facility] [address] [place], [place] [phone] Amy White MD [address] [place] [address] Infected wound (Primary Dx); Laceration of left [...] documented as of this encounter Care Teams Core Rescuer Relationship Specialty Start Date End Date Amy White MD [address] [place] [phone] PCP - General Internal Medicine 06/18/18 documented as of this encounter
--- OUTSIDE RECORDS SUMMARY | 2025-03-16 14:42 | XMS_ITS | Encounter Summary ---
Author Organization [employer] Address [address] [facility] 7t [place] [address] Care Team Providers Care Child Care Center Assistant Director Name Role Phone Amy White MD Primary Care Provider Encounter Details Date Type Department Care Team (Late st Contact Info) Description 12/10/[address] [facility] [address] [place], [place] [phone] Amy White MD [address] [place] [address] Social History Tobacco Use Types Packs/Day Years [...] Time PHQ-9 Depression Total Score: 0 05/30/20 2:31 PM EST documented as of this encounter Care Teams Child Care Center Assistant Director Relationship Specialty Start Date End Date Amy White MD [address] [place] [phone] PCP - General Internal Medicine 06/18/18 documented as of this encounter
--- OUTSIDE RECORDS SUMMARY | 2025-03-16 14:42 | XMS_ITS | Clinical Summary ---
Author Organization [facility] Address [address] [place] [phone] Care Team Providers Care Telegrapher Agent Name Role Phone Unavailable Primary Care [...] - 19+ 3-dose series) 2007 Pneumococcal Vaccine: Peds ( 0 to 5 Years) and At-Risk Patients (6 to 49 Years) (2 of 2 - PCV) 01/13/2015 01/13/2014 Influenza Vaccine (#1) 2025 03/20/2019, 2011 Insurance Medicaid [place]
== END 2025-03-16 14:16 | disposition home or self-care (01) ==
LOC: HO.HGI 13:16
PROVIDERS: PCP Internal Medicine; Visit Provider Nurse Practitioner Family
DX: K59.01 Slow transit constipation (principal); K64.9 Unspecified hemorrhoids; L29.0 Pruritus ani
CPT/HCPCS: 99213

== ENCOUNTER → 2025-03-16 13:15 | Outpatient (BNVA) | payer MEDICAID, SELFPAY | PROVIDERS: PCP Internal Medicine; Visit Provider Nurse Practitioner Family | DX: K59.01 Slow transit constipation (principal); K64.9 Unspecified hemorrhoids; L29.0 Pruritus ani | CPT/HCPCS: 99212 ==